=== PATIENT | female | born 1935 | race African-American/Black ===

== ENCOUNTER 2018-09-16 14:44 | Emergency (ER) | payer OTHER ==
[2018-09-16] MEDS: ONDANSETRON 4 MG INJ IV (15:46)
[2018-09-16] MEDS: morphine 4 MG/ML VIAL IV (15:46)
[2018-09-16 15:59] LABS: ABNORMAL IP MESSAGE 1; HEMATOCRIT 30.2 % (37.0-47.0); HEMOGLOBIN 10.2 g/dl (12.0-16.0); MEAN CORPUSCULAR HEMOGLOBIN 38.3 pg (29.0-33.0); MEAN CORPUSCULAR HGB CONC 33.8 g/dl (32.0-37.0); MEAN CORPUSCULAR VOLUME 113.5 fl (82.0-101.0); MEAN PLATELET VOLUME 11.5 fl (7.4-10.4); PLATELET COUNT 95 10^3/UL (140-415); RED BLOOD COUNT 2.66 10^6/ul (4.20-5.40); RED CELL DISTRIBUTION WIDTH 13.2 % (11.5-14.5)
[2018-09-16 15:59] LABS: WHITE BLOOD COUNT 4.4 10^3/ul (4.8-10.8)
[2018-09-16 16:10] LABS: ADD MAN DIFF? YES; POSITIVE DIFF @See below
[2018-09-16] MEDS: LACTATED RINGER'S 1,000 ML IV (16:14)
[2018-09-16 16:19] LABS: INR 1.04; PROTIME 13.7 Sec (11.9-14.9); PT RATIO 1.1
[2018-09-16 16:20] LABS: PARTIAL THROMBOPLASTIN TIME 30.1 Sec (23.0-35.0)
[2018-09-16 16:23] LABS: ALANINE AMINOTRANSFERASE 21 IU/L (13-69); ALBUMIN 3.6 g/dl (3.3-4.9); ALBUMIN/GLOBULIN RATIO 1.09; ALKALINE PHOSPHATASE 84 IU/L (42-121); ANION GAP 6 (5-13); ASPARTATE AMINO TRANSFERASE 39 IU/L (15-46); BILIRUBIN,INDIRECT 0.8 mg/dl (0-1.1); BILIRUBIN,TOTAL 0.8 mg/dl (0.2-1.3); BLOOD UREA NITROGEN 31 mg/dl (7-20); CARBON DIOXIDE 37 mmol/L (21-31); CHLORIDE 99 mmol/L (97-110); CREATININE 1.28 mg/dl (0.44-1.00); GLUCOSE 99 mg/dl (70-220); LIPASE 26 U/L (23-300); SODIUM 142 mmol/L (135-144); TOTAL PROTEIN 6.9 g/dl (6.1-8.1)
[2018-09-16 16:27] LABS: ADD UMIC YES; UR ASCORBIC ACID NEGATIVE (NEGATIVE); UR BILIRUBIN (Dip) NEGATIVE (NEGATIVE); UR BLOOD (Dip) 1+ mg/dL (NEGATIVE); UR CLARITY CLEAR (CLEAR); UR COLOR YELLOW (YELLOW); UR GLUCOSE (Dip) NEGATIVE (NEGATIVE); UR KETONES (Dip) NEGATIVE (NEGATIVE); UR LEUKOCYTE ESTERASE (Dip) NEGATIVE Leu/ul (NEGATIVE); UR NITRITE (Dip) NEGATIVE (NEGATIVE); UR RBC 2 /HPF (0-5); UR SPECIFIC GRAVITY (Dip) 1.011 (1.003-1.030); UR TOTAL PROTEIN (Dip) NEGATIVE (NEGATIVE); UR UROBILINOGEN (Dip) NEGATIVE (NEGATIVE); UR WBC 3 /HPF (0-5)
[2018-09-16 16:35] LABS: TROPONIN-I < 0.012 ng/ml (0.000-0.120)
[2018-09-16 16:39] LABS: ANISOCYTOSIS 2+ (0-0); BAND NEUTROPHILS #M 0.1 10^3/ul (0.0-0.6); BAND NEUTROPHILS % (M) 3 % (0-4); EOSINOPHILS % (M) 1 % (0-7); LYMPHOCYTES #M 0.3 10^3/ul (0.8-2.9); LYMPHOCYTES % (M) 9 % (15-51); MONOCYTES % (M) 1 % (0-11); PLATELET ESTIMATE DECREASED; REACTIVE LYMPHOCYTES% (M) 2 % (0-0); SEG NEUT #M 3.7 10^3/ul (1.6-7.5); SEGMENTED NEUTROPHILS (M) % 84 % (39-77); SMUDGE%M 3 % (0-0)
[2018-09-16] MEDS: OXYCODONE/ACETAMINOPHEN (5/325) TAB PO (16:42)
[2018-09-16] MEDS: ACETAMINOPHEN 325 MG TAB PO (16:46)
[2018-09-16] MEDS: POTASSIUM CHLORIDE (SR) 20 MEQ TAB PO (17:34)
== END 2018-09-16 18:03 | disposition home or self-care (01) ==
LOC: E/R 14:44
DX: R07.9 Chest pain, unspecified (principal); C79.81 Secondary malignant neoplasm of breast; C80.1 Malignant (primary) neoplasm, unspecified; E86.0 Dehydration; R10.9 Unspecified abdominal pain; Z79.01 Long term (current) use of anticoagulants
CPT/HCPCS: 36415; 71045; 80053; 81001; 83690; 84484; 85025; 85610; 85730; 87086; 99284-25